=== PATIENT | female | born 1995 | race Caucasian/White ===

== ENCOUNTER 2018-03-08 19:45 | Emergency (ER) | payer OTHER ==
[~2018-03-08] VITALS: Ht 160 cm; Wt 83.2 kg
[2018-03-08 19:52] VITALS: Ht 160 cm; Wt 83.2 kg
[2018-03-08 21:28] VITALS: BP 123/84
== END 2018-03-08 21:28 | disposition home or self-care (01) ==
LOC: ED 19:45
DX: G40.89 Other seizures (principal); R55 Syncope and collapse; F12.90 Cannabis use, unspecified, uncomplicated
CPT/HCPCS: 82962